=== PATIENT | male | born 1940 | race Hispanic/Latino ===

== ENCOUNTER 2017-09-01 01:47 | Emergency (ER) | payer MEDICARE ==
--- NOTE | 2017-09-01 07:11 | Emergency Department Report ---
HPI - General Chief Complaint: Fall Time Seen by Provider: 09/01/17 06:47 - HPI HPI: This is a 77-year-old male presents to the emergency department from home via EMS after passing out. The patient says that he was having a cough and a slight headache yesterday evening and he sent his daughter to the pharmacy to get some type of medication, whenever the pharmacist recommends. When she got home he was found unconscious in the bathroom. The patient says he remembers going to the bathroom and woke up at home but unknown time unconscious. He has a previous history of glaucoma and coronary artery disease with [place]. There is some questionable history of previous CVA secondary to some visual disturbance he had in the past. No recent travel or sick contacts at home. He denies any tobacco or illicit drug use or abuse. ED Past Medical Hx - Past Medical History Previous Medical History?: Yes Hx CVA: Yes Hx Heart Attack/AMI: Yes Additional medical history: glaucoma - Surgical History Past Surgical History?: No - Social History Smoking Status: Never Smoker ED Review of Systems ROS: Stated complaint: FALL Other details as noted in HPI Comment: All other systems reviewed and negative Constitutional: denies: chills, fever Eyes: denies: eye pain, eye discharge, vision change ENT: denies: ear pain, throat pain Respiratory: denies: cough, shortness of breath, wheezing Cardiovascular: syncope. denies: chest pain, palpitations Gastrointestinal: denies: abdominal pain, nausea, diarrhea Genitourinary: denies: urgency, dysuria Musculoskeletal: denies: back pain, joint swelling, arthralgia Skin: denies: rash, lesions Neurological: denies: headache, weakness, paresthesias Physical Exam - Physical Exam Vital Signs: Vital Signs 09/01/17 09/01/17 09/01/17 01:54 02:01 02:15 Temperature Pulse Rate 119 H 115 H 112 H Respiratory 13 27 H 27 H Rate Blood Pressure 135/88 O2 Sat by Pulse 96 97 Oximetry 09/01/17 09/01/17 09/01/17 02:30 02:34 02:45 Temperature 97.7 F Pulse Rate 109 H 115 H 104 H Respiratory 27 H 19 Rate Blood Pressure 129/79 116/73 O2 Sat by Pulse 96 94 Oximetry 09/01/17 09/01/17 09/01/17 03:00 03:15 03:30 Temperature Pulse Rate 100 H 97 H 97 H Respiratory 25 H 22 24 Rate Blood Pressure 110/72 103/69 100/68 O2 Sat by Pulse 93 94 94 Oximetry 09/01/17 09/01/17 09/01/17 03:45 04:00 04:15 Temperature Pulse Rate 102 H 94 H 96 H Respiratory 22 24 24 Rate Blood Pressure 132/84 100/67 113/68 O2 Sat by Pulse 95 93 94 Oximetry 09/01/17 09/01/17 09/01/17 04:30 04:45 05:00 Temperature Pulse Rate 94 H 89 89 Respiratory 29 H 22 24 Rate Blood Pressure 109/70 112/68 112/69 O2 Sat by Pulse 93 94 94 Oximetry 09/01/17 09/01/17 05:15 05:30 Temperature Pulse Rate 84 81 Respiratory 20 19 Rate Blood Pressure 109/65 114/65 O2 Sat by Pulse 95 93 Oximetry Physical Exam: GENERAL: The patient is well-developed well-nourished. HENT: Normocephalic. Atraumatic. Patient has moist mucous membranes. EYES: Extraocular motions are intact. Pupils equal reactive to light bilaterally. No nystagmus. NECK: Supple. Trachea is midline. CHEST/LUNGS: Clear to auscultation. There is no respiratory distress noted. HEART/CARDIOVASCULAR: Regular. There is no tachycardia. There is no murmur. ABDOMEN: Abdomen is soft, nontender. Patient has normal bowel sounds. There is no abdominal distention. SKIN: Skin is warm and dry. There is a small laceration and/or abrasion to the left eyebrow. There is no gap, no current bleeding and no signs of infection. NEURO: The patient is awake, alert, and oriented. The patient is cooperative. The patient has no focal neurologic deficits. The patient has normal speech and gait. Cranial nerves II through XII grossly intact. No pronator drift. No dysmetria. MUSCULOSKELETAL: There is no tenderness or deformity. There is no limitation range of motion. There is no evidence of acute injury. ED Course Vital Signs 09/01/17 09/01/17 09/01/17 01:54 02:01 02:15 Temperature Pulse Rate 119 H 115 H 112 H Respiratory 13 27 H 27 H Rate Blood Pressure 135/88 O2 Sat by Pulse 96 97 Oximetry 09/01/17 09/01/1709/01/18 02:30 02:34 02:45 Temperature 97.7 F Pulse Rate 109 H 115 H 104 H Respiratory 27 H 19 Rate Blood Pressure 129/79 116/73 O2 Sat by Pulse 96 94 Oximetry 09/01/17 09/01/17 09/01/17 03:00 03:15 03:30 Temperature Pulse Rate 100 H 97 H 97 H Respiratory 25 H 22 24 Rate Blood Pressure 110/72 103/69 100/68 O2 Sat by Pulse 93 94 94 Oximetry 09/01/17 09/01/17 09/01/17 03:45 04:00 04:15 Temperature Pulse Rate 102 H 94 H 96 H Respiratory 22 24 24 Rate Blood Pressure 132/84 100/67 113/68 O2 Sat by Pulse 95 93 94 Oximetry 09/01/17 09/01/17 09/01/17 04:30 04:45 05:00 Temperature Pulse Rate 94 H 89 89 Respiratory 29 H 22 24 Rate Blood Pressure 109/70 112/68 112/69 O2 Sat by Pulse 93 94 94 Oximetry 09/01/17 09/01/17 05:15 05:30 Temperature Pulse Rate 84 81 Respiratory 20 19 Rate Blood Pressure 109/65 114/65 O2 Sat by Pulse 95 93 Oximetry ED Medical Decision Making - Lab Data Result diagrams: 09/01/17 07:15 09/01/17 07:18 - EKG Data -: EKG Interpreted by Me EKG shows normal: sinus rhythm, axis, intervals, QRS complexes (RBBB), ST-T waves (nonspecific ST-T) Rate: tachycardia (114 bpm) - EKG Data When compared to previous EKG there are: previous EKG unavailable Interpretation: other (RBBB, tachycardia, nonspecific ST-T) - Radiology Data Radiology results: report reviewed, image reviewed interpreted by me: Chest x-ray does not show any pneumonia, pneumothorax or obvious pleural effusions. EXAM: CT HEAD/BRAIN WO CON HISTORY: Syncope TECHNIQUE: CT imaging is acquired through the brain without contrast. Transaxial reformations are provided. PRIORS: None. FINDINGS: Ventricles and CSF spaces are proportionately enlarged, consistent with parenchymal atrophy. Scattered deep and subcortical white matter hypodense foci are confluent in some areas and are compatible with microvascular angiopathy. No acute intracranial hemorrhage or mass effect. No skull fracture. No significant abnormality within the imaged paranasal sinuses or mastoid air cells. IMPRESSION: No acute intracranial abnormality. 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 Transcribed By: MB Dictated By: DICKSON RODRIGUEZ MD Electronically Authenticated By: DICKSON RODRIGUEZ MD Signed Date/Time: 09/01/17 9477 - Medical Decision Making Patient originally told me that he was here after having a syncopal episode last night. The patient's son is bedside by the time of discharge and says that it does not appear that the patient actually ever passed out but did fall down in his head. CT of the head did not show any bleed, shift, mass or any acute process. EKG did not show any signs of ST elevation [place] or dysrhythmia. Labs are unremarkable. Vital signs stable throughout his E course including being afebrile. Patient was seen ambulatory in the emergency department and appeared stable. No focal, motor or sensory deficits and his cranial nerves appeared intact. He appears safe for discharge home at this time it is been encouraged to follow up with his primary care physician and to return to the emergency Department with any worsening of symptoms or any acute distress. - Differential Diagnosis skull fracture, brain bleed, orthostatic hypotension, vasovagal, contusion Critical Care Time: No Critical care attestation.: If time is entered above; I have spent that time in minutes in the direct care of this critically ill patient, excluding procedure time. ED Disposition Clinical Impression: Fall Qualifiers: Encounter type: initial encounter Qualified Code(s): W19.XXXA - Unspecified fall, initial encounter Head injury Qualifiers: Encounter type: initial encounter Qualified Code(s): S09.90XA - Unspecified injury of head, initial encounter Abrasion of left eyebrow Qualifiers: Encounter type: initial encounter Qualified Code(s): S00.212A - Abrasion of left eyelid and periocular area, initial encounter Disposition: - TO HOME OR SELFCARE Is pt being admited?: No Condition: Stable Instructions: Minor Head Injury (ED), Fall Prevention (ED) Additional Instructions: Please follow-up with your primary care physician. Return to the emergency Department with any worsening of your symptoms or any acute distress. Referrals: LACI ANTON MD [Primary Care Provider] - 3-5 Days Time of Disposition: 10:01
--- NOTE | 2017-09-01 07:30 | XRay Report ---
FINAL REPORT EXAM: XR CHEST 1V AP HISTORY: Syncope TECHNIQUE: AP portable view(s) of the chest obtained. PRIORS: None. FINDINGS: No mediastinal shift. Cardiac silhouette is not enlarged. No pneumothorax. Diffuse interstitial thickening and reticulation. Minimal blunting of the costophrenic angles. IMPRESSION: Diffuse interstitial thickening and reticulation is suggestive of fibrosis. Pulmonary edema could appear similar, and trace pleural effusions may be present. Correlation with history of pulmonary fibrosis and heart failure is requested.
[2017-09-01 07:31] LABS: Basophils % (Auto) 0.2 % (0.0-1.8); Eosinophils % (Auto) 0.2 % (0.0-4.3); Hematocrit 37.9 % (35.5-45.6); Hemoglobin 12.8 gm/dl (11.8-15.2); Lymphocytes # (Auto) 1.3 K/mm3 (1.2-5.4); Lymphocytes % (Auto) 9.7 % (13.4-35.0); Mean Corpuscular HGB Conc 34 % (32-34); Mean Corpuscular Hemoglobin 30 pg (28-32); Mean Corpuscular Volume 90 fl (84-94); Monocytes # (Auto) 0.9 K/mm3 (0.0-0.8); Monocytes % (Auto) 6.9 % (0.0-7.3); Platelet Count 330 K/mm3 (140-440); Red Blood Count 4.23 M/mm3 (3.65-5.03); Red Cell Distribution Width 13.8 % (13.2-15.2)
--- NOTE | 2017-09-01 07:49 | Cat Scan Report ---
FINAL REPORT EXAM: CT HEAD/BRAIN WO CON HISTORY: Syncope TECHNIQUE: CT imaging is acquired through the brain without contrast. Transaxial reformations are provided. PRIORS: None. FINDINGS: Ventricles and CSF spaces are proportionately enlarged, consistent with parenchymal atrophy. Scattered deep and subcortical white matter hypodense foci are confluent in some areas and are compatible with microvascular angiopathy. No acute intracranial hemorrhage or mass effect. No skull fracture. No significant abnormality within the imaged paranasal sinuses or mastoid air cells. IMPRESSION: No acute intracranial abnormality. 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
[2017-09-01 07:50] LABS: Alanine Aminotransferase 8 units/L (7-56); Albumin 3.1 g/dL (3.9-5); BUN/Creatinine Ratio 12; Blood Urea Nitrogen 12 mg/dL (9-20); Calcium 8.2 mg/dL (8.4-10.2); Hemolysis Index 8
[2017-09-01 10:38] VITALS: BP 128/70
== END 2017-09-01 10:40 | disposition home or self-care (01) ==
LOC: ED 01:47
DX: S00.212A Abrasion of left eyelid and periocular area, initial encounter (principal); I25.2 Old myocardial infarction; Z86.73 Personal history of transient ischemic attack (TIA), and cerebral infarction without residual deficits; W18.30XA Fall on same level, unspecified, initial encounter; Y93.89 Activity, other specified; Y92.89 Other specified places as the place of occurrence of the external cause; Y99.8 Other external cause status
CPT/HCPCS: 36415; 70450; 71045; 80053; 82550; 84443; 84484; 85025; 93005; 93010; 99284